=== PATIENT | female | born 1940 | race Caucasian/White ===

== ENCOUNTER 2024-11-20 08:48 | Outpatient (CLI) | payer MEDICARE, SELFPAY ==
--- NOTE | ~2024-11-20 | DEXA_ITS ---
Bone Density Report Name: EDGAR BENNETT Age: 84 Sex: Female Ethnicity: White Date of : 1940 Indication: postmenopausal; screening for osteoporosis; height loss; cancer; hysterectomy; Referring Provider: JERONIMO, LIU Saxena Study: Bone densitometry was performed. Exam Date: November 20, 2024 Accession number: [id number] Bone Density: Region BMD T-score Z-score Classification AP Spine(L1-L4) 0.893 -1.4 1.4 Osteopenia Femoral Neck (Left) 0.562 -2.6 -0.2 Osteoporosis Total Hip (Left) 0.759 -1.5 0.7 Osteopenia Femoral Neck (Right) 0.650 -1.8 0.6 Osteopenia Total Hip (Right) 0.779 -1.3 0.9 Osteopenia Total Hip Mean 0.769 -1.4 0.8 Osteopenia World Health Organization criteria for BMD impression classify patients as: Normal (T-score at or above -1.0), Osteopenia (T-score between -1.0 and -2.5), or Osteoporosis (T-score at or below -2.5). 10-year Fracture Risk: FRAX not reported because: Some T-score for Spine Total or Hip Total or Femoral Neck at or below -2.5 Clinical Information Provided by Patient: Smokes Has used the following medications: Vitamin D, Calcium Has the following medical conditions: Cancer, Hysterectomy Patient maximum height was 61 Menopause Age: 44 No regular weight bearing exercise Does not regularly consume dairy products Drinks caffeinated beverages Onset of menses at age 14 Number of children 5 Impression: The patient has osteoporosis, based on the Left Femoral Neck T-score. The patient has risk factors, including: smoking. Discussion: INCREASED RISK OF FRACTURE. BONE DENSITY IS UNDESIRABLY LOW AT ONE OR MORE SKELETAL SITES, CONSISTENT WITH POSTMENOPAUSAL OSTEOPOROSIS. This patient's lowest T-score meets the World Health Organization's (WHO) criteria for osteoporosis at one or more sites (T-score -2.5 or below). In untreated patients, the risk of osteoporotic fracture increases approximately two-fold for each 1.0 SD decrease in T-score. Low bone density is not the only risk factor for fracture; also consider factors such as patient's age, frailty or poor health, risk of falling, risk of injury, previous osteoporotic fracture, family history of osteoporosis, cigarette smoking, low body weight, etc. Not everyone with low bone mineral density has osteoporosis; osteomalacia and other metabolic bone disorders should also be considered. Patients who have osteoporosis should be evaluated for specific diseases and conditions (secondary causes) that may cause or contribute to bone loss. The [place] [employer] Endocrinologists (AACE) and National Osteoporosis Foundation (NOF) recommend pharmacologic intervention for all postmenopausal women whose T-score is in this range. The patient should follow a healthful lifestyle (good nutrition with adequate calcium and vitamin D, and appropriate weight-bearing exercise). Follow-Up: Consider a repeat BMD and Vertebral Fracture Assessment (VFA) exam in 2 years or sooner if medically necessary, to reassess this patient's status. Reported by: YAYA on 11/20/2024 9:45:00 AM. Reviewed, dictated and finalized at location A.
--- OUTSIDE RECORDS SUMMARY | 2024-11-20 09:04 | XMS_ITS ---
Author Organization [facility] Address [address] [place] [address] Care Team Providers Care Junction Maker Name Role Phone Jason Madden Unavailable [phone] Problems Problem Type SNOMED Code ICD Code Onset Dates Problem Status W/U Status Risk Notes Problem Vitamin D deficiency (62761175) Vitamin D deficiency, unspecified (E55.9) Active confirmed Problem Overactive bladder (450941796) Overactive bladder (N32.81) Active confirmed Encounters Encounter Location Date Provider Diagnosis [place] [facility] [address] [facility] [address] [place] [address] 06/01/2024 Jason Madden Chronic kidney disea se, stage 3a N18.31 ; Hyperuricemia without signs of inflammatory arthritis and tophaceous disease E79.0 ; Renal osteodystrophy N25.0 ; Secondary hyperparathyroidism, not elsewhere classified E21.1 ; Chronic pain syndrome G89.4 ; Essential hypertension I10 ; Vitamin D deficiency, unspecified E55.9 and Overactive bladder N32.81 Assessments Encounter Date Diagnosis (ICD Code) Assessment Notes Treatment Notes Treatment Clinical Notes Section Notes 06/01/2024 Chronic kidney disease, stage 3a (ICD-10 - N18.31) 06/01/2024 Hyperuricemia without signs of inflammatory arthritis and tophaceous disease (ICD-10 - E79.0) 06/01/2024 Renal osteodystrophy (ICD-10 - N25.0) 06/01/2024 Secondary hyperparathyroidism , not elsewhere classified (ICD-10 - E21.1) 06/01/2024 Chronic pain syndrome (ICD-10 - G89.4) 06/01/2024 Essential hypertension (ICD-10 - I10) 06/01/2024 Vitamin D deficiency, unspecified (ICD-10 - E55.9) 06/01/2024 Overactive bladder (ICD-10 - N32.81) Plan Of Treatment No Information Progress Notes * EDGAR BENNETTDOB:1940 (84 yo F)Acc No.[id number]:06/01/2024 Progress Notes Patient: EDGAR JOLLY Provider: Varun BOBBY MD, Almita.Rani.C.P, F.A.S.N. :1940 A ge:84 Y S ex:Female Date:06/01/2024 Address:[address] [place] [address] Subjective: * Chief Complaints: * * Medical History: Objective: * Vitals: Assessment: * Assessment: 1. C hronic kidney disease, stage 3a - N18.31 (Primary) 2 . H yperuricemia without signs of inflammatory arthritis and tophaceous disease - E79.0 3 . R enal osteodystrophy - N25.0 4 . S econdary hyperparathyroidism, not elsewhere classified - E21.1 5 . C hronic pain syndrome - G89.4 6 . E ssential hypertension - I10 7 . V itamin D deficiency, unspecified - E55.9 8 . O veractive bladder - N32.81 Plan: * Treatment: * Billing Information: * Visit Code: 46134 Office Visit, Est Pt., Level 4. * Procedure Codes: * Electronic signature of Jonnathan Madden MD on 11/20/2024 at 09:03 AM CDT Sign off status: Pending * Provider: Varun BOBBY MD, F.A.C.P, F.A.S.N. Date: 0 06/01/2024 Generated for Printing/Faxing/eTransmitting on: 0 11/20/2024 09:03 AM CDT
--- OUTSIDE RECORDS SUMMARY | 2024-11-20 09:04 | XMS_ITS ---
Author Organization [facility] Address [address] [place] [address] Care Team Providers Care Office Auditor Name Role Phone Jason Madden Unavailable [phone] Problems Problem Type SNOMED Code ICD Code Onset Dates Problem Status W/U Status Risk Notes Problem Chronic kidney disease stage 3B (disorder) (202531929) Chronic kidney disease, stage 3b (N18.32) Active confirmed Encounters Encounter Location Date Provider Diagnosis [place] [facility] [address] [facility] [address] [place] [address] 10/05/2024 Jason Madden Chronic kidney disea se, stage 3b N18.32 ; Hyperuricemia without signs of inflammatory arthritis and tophaceous disease E79.0 ; Renal osteodystrophy N25.0 ; Secondary hyperparathyroidism, not elsewhere classified E21.1 ; Chronic pain syndrome G89.4 ; Essential hypertension I10 ; Vitamin D deficiency, unspecified E55.9 and Overactive bladder N32.81 Assessments Encounter Date Diagnosis (ICD Code) Assessment Notes Treatment Notes Treatment Clinical Notes Section Notes 10/05/2024 Chronic kidney disease, stage 3b (ICD-10 - N18.32) 10/05/2024 Hyperuricemia without signs of inflammatory arthritis and tophaceous disease (ICD-10 - E79.0) 10/05/2024 Renal osteodystrophy (ICD-10 - N25.0) 10/05/2024 Secondary hyperparathyroidism , not elsewhere classified (ICD-10 - E21.1) 10/05/2024 Chronic pain syndrome (ICD-10 - G89.4) 10/05/2024 Essential hypertension (ICD-10 - I10) 10/05/2024 Vitamin D deficiency, unspecified (ICD-10 - E55.9) 10/05/2024 Overactive bladder (ICD-10 - N32.81) Plan Of Treatment No Information Progress Notes * EDGAR BENNETTDOB:1940 (84 yo F)Acc No.[id number]:10/05/2024 Patient: EDGAR JOLLY Provider: Varun BOBBY MD, F.A.C.P, F.A.S.N. :1940 A ge:84 Y S ex:Female Date:10/05/2024 Address:[address] [place] [address] Subjective: * Chief Complaints: Objective: Assessment: * Assessment: 1. C hronic kidney disease, stage 3b - N18.32 (Primary) 2 . H yperuricemia without signs [...] O veractive bladder - N32.81 Plan: * Billing Information: * Visit Code: 27523 Office Visit, Est Pt., Level 5. * Procedure Codes: * Electronic signature of Jonnathan Madden MD on 11/20/2024 at 09:04 AM CDT Sign off status: Pending * Provider: Varun BOBBY MD, F.Rani.C.P, F.A.S.N. Date: 0 10/05/2024 Generated for Printing/Faxing/eTransmitting on: 0 11/20/2024 09:04 AM CDT
--- OUTSIDE RECORDS SUMMARY | 2024-11-20 09:04 | XMS_ITS | Patient Health Record ---
Author Organization [facility] Address [address] [place] [address] Care Team Providers Care Knuckle Strap Sewer Name Role Phone Jason Madden Unavailable [phone] Reason For Referral No Information Medications Medication SIG (Take, Route, Frequency, Duration) Notes Start Date End Date Status Allopurinol 100 MG 1 tablet Orally Once a day; Duration: 90 day(s) 07/12/2023 05/18/2025 Active Vitamin D (Ergocalciferol) 1.25 MG (76975 UT) TAKE ONE CAPSULE BY MOUTH ONE TIME A WEEK; Duration: 91 Active Calcitriol 0.25 MCG 1 capsule Orally Twi ce a day; Duration: 90 days 10/05/2024 Active amLODIPine Besylate 5 MG 1 tablet Orally Once a day; Duration: 90 days 08/03/2024 Active Problems Problem Type SNOMED Code ICD Code Onset Dates Problem Status W/U Status Risk Notes Problem Secondary hyperparathyroidism (62000371) Secondary hyperparathyroid ism, not elsewhere classified (E21.1) Active confirmed Problem Vitamin D deficiency (35011352) Vitamin D deficiency, unspecified (E55.9) Active confirmed Problem Hyperuricemia withou t signs of inflammatory arthritis and tophaceous disease (872831864) Hyperuricemia without signs of inflammatory arthritis and tophaceous disease (E79.0) Active confirmed Problem Chronic pain syndrom e (425374900) Chronic pain syndrome (G89.4) Active confirmed Problem Renal osteodystrophy (42010756) Renal osteodystrophy (N25.0) Active confirmed Problem Overactive bladder (955146476) Overactive bladder (N32.81) Active confirmed Problem Essential hypertension (10387659) Essential hypertension (I10) Active confirmed Problem Chronic kidney disease stage 3B (disorder) (836313048) Chronic kidney disease, stage 3b (N18.32) Active confirmed Encounters Encounter Location Date Provider Diagnosis [facility] [address] [address] 02/17/2024 Jason Madden Chronic kidney disea se, stage 3a N18.31 ; Essential hypertension I10 ; Hyperuricemia without signs of inflammatory arthritis and tophaceous disease E79.0 ; Renal osteodystrophy N25.0 ; Secondary hyperparathyroidism, not elsewhere classified E21.1 and Chronic pain syndrome G89.4 [place] [facility] [address] [place] [address] 06/01/2024 Jason Madden Chronic kidney disea se, stage 3a N18.31 ; Hyperuricemia without signs of inflammatory arthritis and tophaceous disease E79.0 ; Renal osteodystrophy N25.0 ; Secondary hyperparathyroidism, not elsewhere classified E21.1 ; Chronic pain syndrome G89.4 ; Essential hypertension I10 ; Vitamin D deficiency, unspecified E55.9 and Overactive bladder N32.81 [place] [facility] [address] [place] [address] 08/03/2024 Jason Madden Chronic kidney disea se, stage 3a N18.31 ; Hyperuricemia without signs of inflammatory arthritis and tophaceous disease E79.0 ; Renal osteodystrophy N25.0 ; Secondary hyperparathyroidism, not elsewhere classified E21.1 ; Chronic pain syndrome G89.4 ; Essential hypertension I10 ; Vitamin D deficiency, unspecified E55.9 and Overactive bladder N32.81 [place] [facility] [address] [address] 10/05/2024 Jason Madden Chronic kidney disea se, stage 3b N18.32 ; Hyperuricemia without signs of inflammatory arthritis and tophaceous disease E79.0 ; Renal osteodystrophy N25.0 ; Secondary hyperparathyroidism, not elsewhere classified E21.1 ; Chronic pain syndrome G89.4 ; Essential hypertension I10 ; Vitamin D deficiency, unspecified E55.9 and Overactive bladder N32.81 [facility] [place] [facility] [address] [place] [address] 08/03/2024 Jason [facility] [address] [place] [address] 08/21/2024 Jason Madden [place] [facility] [address] [place] [address] 10/05/2024 Jason Madden Assessments Encounter Date Diagnosis (ICD Code) Assessment Notes Treatment Notes Treatment Clinical Notes Section Notes 02/17/2024 Essential hypertension (ICD-10 - I10) 02/17/2024 Chronic kidney disease, stage 3a (ICD-10 - N18.31) 06/01/2024 Hyperuricemia without signs of inflammatory arthritis and tophaceous disease (ICD-10 - E79.0) 06/01/2024 Chronic kidney disease, stage 3a (ICD-10 - N18.31) 08/03/2024 Chronic kidney disease, stage 3a (ICD-10 - N18.31) 10/05/2024 Chronic kidney disease, stage 3b (ICD-10 - N18.32) 10/05/2024 Hyperuricemia without signs of inflammatory arthritis and tophaceous disease (ICD-10 - E79.0) 06/01/2024 Renal osteodystrophy (ICD-10 - N25.0) 08/03/2024 Hyperuricemia without signs of inflammatory arthritis and tophaceous disease (ICD-10 - E79.0) 02/17/2024 Hyperuricemia without signs of inflammatory arthritis and tophaceous disease (ICD-10 - E79.0) 02/17/2024 Renal osteodystrophy (ICD-10 - N25.0) 06/01/2024 Secondary hyperparathyroidism , not elsewhere classified (ICD-10 - E21.1) 08/03/2024 Renal osteodystrophy (ICD-10 - N25.0) 10/05/2024 Renal osteodystrophy (ICD-10 - N25.0) 10/05/2024 Secondary hyperparathyroidism , not elsewhere classified (ICD-10 - E21.1) 08/03/2024 Secondary hyperparathyroidism , not elsewhere classified (ICD-10 - E21.1) 06/01/2024 Chronic pain syndrome (ICD-10 - G89.4) 02/17/2024 Secondary hyperparathyroidism , not elsewhere classified (ICD-10 - E21.1) 02/17/2024 Chronic pain syndrome (ICD-10 - G89.4) 08/03/2024 Chronic pain syndrome (ICD-10 - G89.4) 06/01/2024 Essential hypertension (ICD-10 - I10) 10/05/2024 Chronic pain syndrome (ICD-10 - G89.4) 08/03/2024 Essential hypertension (ICD-10 - I10) 06/01/2024 Vitamin D deficiency, unspecified (ICD-10 - E55.9) 10/05/2024 Essential hypertension (ICD-10 - I10) 10/05/2024 Vitamin D deficiency, unspecified (ICD-10 - E55.9) 08/03/2024 Vitamin D deficiency, unspecified (ICD-10 - E55.9) 06/01/2024 Overactive bladder (ICD-10 - N32.81) 08/03/2024 Overactive bladder (ICD-10 - N32.81) 10/05/2024 Overactive bladder (ICD-10 - N32.81) Plan Of Treatment No Information
--- OUTSIDE RECORDS SUMMARY | 2024-11-20 09:04 | XMS_ITS | Clinical Summary ---
Author Organization [facility] Address [address] [place] [address] Care Team Providers Care Shovel Logger Name Role Phone Rick Rowley MD Primary Care Provider [phone] Source Comments [facility],non-owned Affiliates and Associated Physician Practices is amultiple site organization consisting of ambulatory clinics and hospital sitesin [place], [place], [place] and [place]. This disclosure is being madepursuant to the Care Everywhere program and may not contain all information available regarding this patient. Last updated 18.[facility] Allergies Active Allergy Reactions Criticality Noted Date Comments Ciprofloxacin Itching 09/18/2020 Erythromycin Nausea and/or Vomiting 09/18/2020 Nitrofurantoin Unknown 04/08/2023 Medications * Be aware that medications may not be up to date on this document. Alwaysverify current medications with the patient. calcitriol (ROCALTROL) 0.25 MCG capsule Take 1 (one) capsule by mouth 3 times daily 1 Active vitamin D, ergocalciferol, (DRISDOL) 1.25 MG (74570 UT) capsule TAKE 1 CAPSULE BY MOUTH 1 TIME A WEEK 1 Active metoprolol tartrate (LOPRESSOR) 50 MG tablet Take 1 (one) tablet by mouth 2 times daily 0 Active pravastatin (PRAVACHOL) 80 MG tablet Take 1 (one) tablet by mouth once daily 1 Active montelukast (SINGULAIR) 10 MG tablet Take 1 (one) tablet by mouth at bedtime 1 Active [place]-3 Fatty Acids (FISH OIL) 1000 MG capsule Take 1 (one) capsule by mouth once daily Active meclizine (ANTIVERT) 12.5 MG tablet Take 1 (one) tablet by mouth 3 times daily as needed for Dizziness Active allopurinol (ZYLOPRIM) 100 MG tablet Take 1 (one) tablet by mouth once daily Active aspirin EC (Ecotrin) 81 MG tablet Take 1 (one) tablet by mouth once daily Active losartan (Cozaar) 100 MG tablet Take 1 (one) tablet by mouth once daily Active tamoxifen (Nolvadex) 20 MG tabletIndicatio ns:Intraductal Breast Carcinoma Take 1 (one) tablet by mouth once daily Reasons: Intraductal Breast Cancer 90 tablet 1 4 Active fluticasone propionate (Flonase) 50 MCG/ACT nasal spray [place] 2 (two) sprays into each nostril once daily Make sure to shake bottle first 5 Active Active Problems Patient Care Coordination No te Formatting of this note migh t be different from the original. 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 T1aN0(i-)M0, stage IA. ER pos 100%, IA neg, Her-2 neg (0 on IHC), ki-67 40% Core bx [place], [place] S/p 10/06/2020 right partial mastectomy/SLN bx (Danika Escamilla): 4 mm grade 3/3 IDC (3,2,3). No LVI. Margin neg by 1 mm. 3 neg nodes Social History Tobacco Use Types Packs/Day Years Used Date Smoking Tobacco: Every Day Cigarettes Smokeless Tobacco: Never Tobacco Cessation:Ready to Q uit: Yes; Counseling Given: Yes Comments:SINCE AGE 17 Alcohol Use Standard Drinks/Week Comments Not Currently 0 (1 standard drink = 0.6 oz pur e alcohol) PHQ-2 Answer Date Recorded Patient Health Questionnaire-2 Score 0 07/19/2024 Comments No Sex and Gender Information Value Date Recorded Sex Assigned at Not on file Legal Sex Female 10:10 AM CDT Gender Identity Female 09/12/2020 10:12 AM CDT Sexual Orientation Not on file Last Filed Vital Signs Vital Sign Reading Time Taken Comments Blood Pressure 131/81 07/19/2024 10:09 AM CDT Pulse 61 07/19/2024 10:09 AM CDT Temperature 36.6 C (97.9 F) 07/19/2024 10:09 AM CDT Respiratory Rate 18 07/19/2024 10:09 AM CDT Oxygen Saturation 95% 07/19/2024 10:09 AM CDT Inhaled Oxygen Concentration - - Weight 62.4 kg (137 lb 8 oz) 07/19/2024 10:09 AM CDT Height 152.4 cm (5') 07/19/2024 10:09 AM CDT Body Mass Index 26.85 07/19/2024 10:09 AM CDT Plan of Treatment Upcoming Encounters Date Type Department Care Team (Late st Contact Info) Description 01/17/2025 11:00 AM CDT Office Visit [facility] [address] [place] [phone] Paul Patterson MD [address] [place] [phone] Health Maintenance Due Date Last Done Comments BONE DENSITY TESTING 1940 DTAP/TDAP/TD VACCINES (1 - Tdap) 1961 PNEUMOCOCCAL VACCINE 50+ (1 of 2 - PCV) 1961 ZOSTER VACCINE (1 of 2) 01/04/1992 Respiratory Syncytial Virus (RSV) Vaccine Pt: or over 60 yrs (1 - 1-dose 75+ series) 2017 COVID-19 VACCINE (4 - season) 2023 02/01/2021, 07/21/2020, 06/23/2020 MEDICARE AWV CALENDAR YEAR 2024 INFLUENZA VACCINE (#1) 2024 3, 01/28/2021, 01/19/2019, Additional history exists DEPRESSION SCREENING Completed 07/19/2024, 06/24/2023, 06/14/2022, Additional history exists HEPATITIS B VACCINE Aged Out No longe r eligible based on patient's age to complete this topic HIB VACCINE Aged Out No longer eligi ble based on patient's age to complete this topic HPV VACCINE Aged Out No longer eligi ble based on patient's age to complete this topic MENINGOCOCCAL (Group B) VACCINE SHARED DECISION-MAKING Aged Out No longer eligible based on patient's age to complete this topic MENINGOCOCCAL GROUPS A/C/Y/W VACCINE Aged Out No longer eligible based on patient's age to complete this topic Insurance [facility] MANAGED MEDICARE ADV Care Teams Shovel Logger Relationship Specialty Start Date End Date Rick Rowley MD [address] [place] [address] PCP - General Internal Medicine 5/27/21
--- OUTSIDE RECORDS SUMMARY | 2024-11-20 09:04 | XMS_ITS ---
Author Organization [facility] Address [address] [place] [address] Care Team Providers Care Grip Wrapper Name Role Phone Jason Madden Unavailable [phone] Medications Medication SIG (Take, Route, Frequency, Duration) Notes Start Date End Date Status Vitamin D (Ergocalciferol) 1.25 MG (97894 UT) TAKE ONE CAPSULE BY MOUTH ONE TIME A WEEK; Duration: 91 Active Encounters Encounter Location Date Provider Diagnosis [place] [facility] [address] [facility] [address] [place] [address] 08/03/2024 Jason Madden Chronic kidney disea se, [...] Treatment Notes Treatment Clinical Notes Section Notes 08/03/2024 Chronic kidney disease, stage 3a (ICD-10 - N18.31) 08/03/2024 Hyperuricemia without signs of inflammatory arthritis and tophaceous disease (ICD-10 - E79.0) 08/03/2024 Renal osteodystrophy (ICD-10 - N25.0) 08/03/2024 Secondary hyperparathyroidism , not elsewhere classified (ICD-10 - E21.1) 08/03/2024 Chronic pain syndrome (ICD-10 - G89.4) 08/03/2024 Essential hypertension (ICD-10 - I10) 08/03/2024 Vitamin D deficiency, unspecified (ICD-10 - E55.9) 08/03/2024 Overactive bladder (ICD-10 - N32.81) Plan Of Treatment No Information Progress Notes * EDGAR BENNETTDOB:1940 (84 yo F)Acc No.[id number]:08/03/2024 Progress Notes Patient: EDGAR JOLLY Provider: Varun BOBBY MD, Almita.Rani.Katerina.P, F.A.S.N. :1940 A ge:84 Y S ex:Female Date:08/03/2024 Address:[address] [place] [address] Subjective: * Chief Complaints: * * Medical History: * Medications: T aking Vitamin D (Ergocalciferol) 1.25 MG (66050 UT) Capsule TAKE ONE CAPSULE BY MOUTH ONE TIME A WEEK Objective: * Vitals: Assessment: * Assessment: 1. [...] Treatment: * Billing Information: * Visit Code: 68616 Office Visit, Est Pt., Level 4. * Procedure Codes: * Electronic signature of Jonnathan Madden MD on 11/20/2024 at 09:04 AM CDT Sign off status: Pending * Provider: Varun BOBBY MD, F.Rani.C.P, F.A.S.N. Date: 0 08/03/2024 Generated for Printing/Faxing/eTransmitting on: 0 11/20/2024 09:04 AM CDT
== END 2024-11-20 08:49 | disposition home or self-care (01) ==
PROVIDERS: Visit Provider Internal Medicine
DX: M81.0 Age-related osteoporosis without current pathological fracture (principal); M85.89 Other specified disorders of bone density and structure, multiple sites; Z78.0 Asymptomatic menopausal state; Z13.820 Encounter for screening for osteoporosis
CPT/HCPCS: 77080